=== PATIENT | male | born 1970 | race Caucasian/White ===

== ENCOUNTER 2018-06-14 12:21 | Emergency (ER) | payer OTHER ==
[2018-06-14 12:34] VITALS: BP 146/95
--- NOTE | 2018-06-14 12:58 | UC ---
UC General HPI - HPI Summary HPI Summary: 2 WEEKS AGO PATIENT HAD FEVER AND BODY ACHES WITH NO OTHER SX AND NO ONE ELSE IN FAMILY WAS ILL. He has continued with fatigue, and right knee pain (no known injury or past issues) - History of Current Complaint Chief Complaint: UCGeneralIllness Stated Complaint: FATIGUE/ACHES/PAIN BODY Time Seen by Provider: 06/14/18 12:38 Hx Obtained From: Patient Onset/Duration: Gradual Onset, Lasting Weeks - 3, Still Present Timing: Constant Pain Intensity: 3 Pain Location at: right knee Associated Signs & Symptoms: Positive: Fever, Weakness - Allergy/Home Medications Allergies/Adverse Reactions: Allergies Allergy/AdvReac Type Severity Reaction Status Date / Time No Known Allergies Allergy Verified 06/14/18 12:34 Home Medications: Home Medications Amlodipine/Atorvastatin [Amlodipine-Atorvast 2.5-20 mg] 1 tab PO DAILY WITH MEAL 06/14/18 [History Confirmed 06/14/18] Irbesartan/Hydrochlor 150/12.5 1 tab PO DAILY WITH MEAL 06/14/18 [History Confirmed 06/14/18] Loratadine 10 mg PO DAILY WITH MEAL 06/14/18 [History Confirmed 06/14/18] PMH/Surg Hx/FS Hx/Imm Hx Previously Healthy: No Endocrine History: Dyslipidemia Cardiovascular History: Hypertension - Surgical History Surgical History: Yes Surgery Procedure, Year, and Place: hernia sugery as an infant - Family History Known Family History: Positive: None - Social History Occupation: Employed Full-time Lives: With Family Alcohol Use: Occasionally Substance Use Type: None Smoking Status (MU): Never Smoked Tobacco Review of Systems Constitutional: Fever, Fatigue Skin: Negative Eyes: Negative ENT: Negative Respiratory: Negative Cardiovascular: Negative Gastrointestinal: Negative Genitourinary: Negative Motor: Negative Neurovascular: Negative Musculoskeletal: Arthralgia - right knee Neurological: Negative Psychological: Negative Is Patient Immunocompromised?: Yes All Other Systems Reviewed And Are Negative: No Physical Exam Triage Information Reviewed: Yes Appearance: Well-Appearing, No Pain Distress, Well-Nourished Vital Signs: Initial Vital Signs Temp 96.3 F 06/14/18 12:29 Pulse 83 06/14/18 12:29 Resp 20 06/14/18 12:29 BP 146/95 06/14/18 12:29 Pulse Ox 97 06/14/18 12:29 Vital Signs Reviewed: Yes Eye Exam: Normal Eyes: Positive: Conjunctiva Clear ENT Exam: Normal ENT: Positive: Normal ENT inspection, Hearing grossly normal. Negative: Trismus , Muffled voice, Hoarse voice Dental Exam: Normal Neck exam: Normal Neck: Positive: Supple, Nontender, No Lymphadenopathy Respiratory Exam: Normal Respiratory: Positive: Chest non-tender, Lungs clear, Normal breath sounds, No respiratory distress, No accessory muscle use Cardiovascular Exam: Normal Cardiovascular: Positive: RRR, No Murmur, Pulses Normal, Brisk Capillary Refill Musculoskeletal Exam: Other Musculoskeletal: Positive: ROM Intact, Edema @ - right knee Neurological Exam: Normal Neurological: Positive: Alert Psychological Exam: Normal Skin Exam: Normal Course/Dx - Course Course Of Treatment: lab studies, doxycycline follow with Dr. Bryant - Differential Dx - Multi-Symptom Provider Diagnoses: Lyme arthralgia right knee, hypertension in poor control Discharge - Sign-Out/Discharge Documenting (check all that apply): Patient Departure - Discharge Plan Condition: Stable Disposition: HOME Prescriptions: DOXYcycline CAP(*) [DOXYcycline 100MG CAP(*)] 100 mg PO BID 28 Days #56 cap Patient Education Materials: Lyme Disease (ED), Hypertension (ED) Referrals: Kenyon Parker MD [Primary Care Provider] - 2 Weeks - Billing Disposition and Condition Condition: STABLE Disposition: Home
[2018-06-15 11:52] LABS: Hematocrit 44 % (42-52); Hemoglobin 15.1 g/dl (14.0-18.0); Mean Corpuscular HGB Conc 34 g/dl (31-36); Mean Corpuscular Hemoglobin 30 pg (27-31); Mean Corpuscular Volume 87 fL (80-94); Mean Platelet Volume 7.7 um3 (7.4-10.4); Platelet Count 390 10^3/ul (150-450); Red Blood Count 5.06 10^6/ul (4.00-5.40); Red Cell Distribution Width 13 % (10.5-15); White Blood Count 7.6 10^3/ul (3.5-10.8)
[2018-06-15 12:00] LABS: EGFR Non-African American 94.5 (>60)
[2018-06-15 12:28] LABS: ABS Basophils 0.1 10^3/ul (0-0.2); ABS Eosinophils 0.2 10^3/ul (0-0.6); ABS Lymphocytes 2.1 10^3/ul (1.0-4.8); ABS Monocytes 0.8 10^3/ul (0-0.8); ABS Neutrophils 4.5 10^3/ul (1.5-7.7)
[2018-06-15 12:31] LABS: ABS Basophils 0 10^3/ul (0-0.2); ABS Neutrophils 5.1 10^3/ul (1.5-7.7); Monocytes % 6 % (0-7)
== END 2018-06-14 13:26 | disposition home or self-care (01) ==
LOC: UCEAST 12:21
DX: A69.23 Arthritis due to Lyme disease (principal); I10 Essential (primary) hypertension; E78.5 Hyperlipidemia, unspecified
CPT/HCPCS: 36415; 80053; 85025; 85060; 86140; 86618; 99212; G0463